=== PATIENT | female | born 1970 | race Caucasian/White ===

== ENCOUNTER 2018-02-15 15:43 | Outpatient (CLI) | payer OTHER ==
--- NOTE | 2018-02-15 16:24 | RAD ---
THREE VIEWS LEFT SHOULDER 02/15/18 COMPARISON: None. HISTORY: Left shoulder pain. FINDINGS: There is mild degenerative change involving the left AC joint. There is no widening of the AC or CC i nterspace. There is no displaced fracture or dislocation. IMPRESSION: No acute osseous abnormality. POS: [facility]
--- NOTE | 2018-02-15 16:25 | RAD ---
LEFT FOREARM TWO VIEWS: 02/15/18 HISTORY: Left arm pain. FINDINGS: Ulna negative variance is noted. Radius and ulna are intact. Mild osteophytosis. IMPRESSION: No acute osseous abnormalities are demonstrated. POS: [facility]
--- NOTE | 2018-02-15 16:26 | RAD ---
LEFT ELBOW FOUR VIEWS: 02/15/18 HISTORY: Left elbow pain. FINDINGS: Radiocapitellar alignment is maintained. No acute fracture, dislocation, aggressive osseous erosions or fluid distention of the joint capsule. IMPRESSION: No acute osseous abnormalities are demonstrated. POS: [facility]
== END 2018-02-15 15:44 | disposition home or self-care (01) ==
LOC: NAV RAD 15:43
PROVIDERS: ATTEND Family Medicine
DX: M25.512 Pain in left shoulder (principal); M25.522 Pain in left elbow; M79.622 Pain in left upper arm

== ENCOUNTER 2018-05-26 10:46 | Emergency (ER) | payer OTHER ==
[2018-05-26] MEDS ORDERED: Furosemide 40 MG/4 ML VIAL ONE ×2 (11:29→14:15)
[2018-05-26 11:50] LABS: #Basophils 0.1 thou/uL (0.0-0.2); #Eosinphils 0.2 thou/uL (0.0-0.7); #Lymphocytes 2.1 thou/uL (1.20-3.40); #Neutrophils 7.1 thou/uL (1.40-6.50); %Basophils 1.4 % (0.0-1.0); %Monocytes 9.2 % (0.0-10.0); %Neutrophils 67.4 % (42.0-75.0); Hemoglobin 12.9 g/dL (12.0-16.0); Mean Corpuscular HGB CONC 31.2 g/dL (32.0-36.0); Mean Corpuscular Volume 89.8 fL (78.0-98.0); Mean Platelet Volume 7.4 fL (7.4-10.4); Platelet Count 306 thou/uL (130-400); RBC Distribution Width 16.2 % (11.5-14.5); Red Blood Cell (RBC) Count 4.61 mill/uL (4.20-5.40); White Blood Cell (WBC) Count 10.5 thou/uL (4.8-10.8)
[2018-05-26 11:56] LABS: Bilirubin Negative (Negative); Blood, Urine Negative (Negative); Clarity Clear (Clear); Glucose, Urine (Dipstick) Negative (Negative); Leukocyte Negative (Negative); Nitrite Negative (Negative); Protein, Urine (Dipstick) Negative (Neg-Trace); Urobilinogen 0.2 mg/dL (0.2-1.0); pH, Urine 8.5 (5.0-9.0)
[2018-05-26] MEDS ORDERED: Sodium Chloride 0.9% 500 ML ONE (11:58)
[2018-05-26 12:00] LABS: INR-International Normal Ratio 0.9; PTT 25.2 SEC (22.9-36.1); Prothrombin Time 12.4 SEC (12.0-14.7)
[2018-05-26 12:09] LABS: ALT (SGPT) 19 U/L (8-55); AST (SGOT) 19 U/L (5-34); Albumin 3.8 g/dL (3.5-5.0); Alkaline Phosphatase 75 U/L (40-150); Anion Gap 16 mmol/L (10-20); BUN (Urea Nitrogen) 8 mg/dL (7.0-18.7); Bilirubin, Total 0.2 mg/dL (0.2-1.2); Calc. Creatinine Clearance 0 mL/min (70-130); Calcium 9.7 mg/dL (7.8-10.44); Carbon Dioxide 27 mmol/L (22-29); Chloride 100 mmol/L (98-107); Estimated GFR-MDRD 87; Globulin 2.7 g/dL (2.4-3.5); Glucose 98 mg/dL (70-105); Potassium 4.3 mmol/L (3.5-5.1); Protein, Total 6.5 g/dL (6.0-8.3); Sodium 139 mmol/L (136-145)
[2018-05-26 12:11] LABS: CKMB 1.9 ng/mL (0-6.6); Troponin I Less than 0.010 ng/mL (< 0.028)
[2018-05-26] MEDS ORDERED: Potassium Chloride 20 MEQ TAB ONE (14:10)
--- NOTE | 2018-05-26 14:55 | RAD ---
PORTABLE AP CHEST XRAY: DATE: 05/26/18. HISTORY: Shortness of breath on exertion, edema, dyspnea. COMPARISON: None available. FINDINGS: The cardiac silhouette and pulmonary vasculature are within normal limits. The lungs are clear. Oss eous structures appear intact. IMPRESSION: No acute cardiopulmonary process. POS: [facility]
== END 2018-05-26 14:25 | disposition home or self-care (01) ==
LOC: NAV ERS 10:46
DX: I89.0 Lymphedema, not elsewhere classified (principal); L03.116 Cellulitis of left lower limb; L03.115 Cellulitis of right lower limb; E11.9 Type 2 diabetes mellitus without complications; I10 Essential (primary) hypertension; J44.9 Chronic obstructive pulmonary disease, unspecified; F41.9 Anxiety disorder, unspecified; F31.9 Bipolar disorder, unspecified; F20.9 Schizophrenia, unspecified; M19.90 Unspecified osteoarthritis, unspecified site; F17.210 Nicotine dependence, cigarettes, uncomplicated; Z86.73 Personal history of transient ischemic attack (TIA), and cerebral infarction without residual deficits; Z79.899 Other long term (current) drug therapy
CPT/HCPCS: 71045; 80053; 81003; 82553; 83880; 84484; 85025; 85610; 85730; 93005; 94640; 96365; 96366; 96375; 96376; J1940; J3370; J7050; J7620

== ENCOUNTER 2020-11-27 11:02 | Emergency (ER) | payer OTHER | END 2020-11-27 12:05 | disposition short-term general hospital (02) | LOC: NAV ERS 11:02 | DX: M79.662 Pain in left lower leg (principal); E11.9 Type 2 diabetes mellitus without complications; J44.9 Chronic obstructive pulmonary disease, unspecified; I10 Essential (primary) hypertension; Z86.73 Personal history of transient ischemic attack (TIA), and cerebral infarction without residual deficits; M19.90 Unspecified osteoarthritis, unspecified site; F17.210 Nicotine dependence, cigarettes, uncomplicated; Z86.718 Personal history of other venous thrombosis and embolism; Z79.51 Long term (current) use of inhaled steroids; Z79.899 Other long term (current) drug therapy ==

== ENCOUNTER 2022-07-18 08:07 | Emergency (ER) | payer OTHER, SELFPAY ==
[2022-07-18] MEDS ORDERED: Ondansetron ODT 4 MG TAB ONE (08:57)
[2022-07-18] MEDS ORDERED: Amoxicillin/Potassium Clav 875 MG TAB ONE (09:06)
[2022-07-18] MEDS ORDERED: Ketorolac Tromethamine 60 MG/2 ML VIAL ONE (09:06)
[2022-07-18] MEDS ORDERED: predniSONE 20 MG TAB ONE (09:06)
== END 2022-07-18 09:37 | disposition home or self-care (01) ==
LOC: NAV ERS 08:07
DX: J44.1 Chronic obstructive pulmonary disease with (acute) exacerbation (principal); K04.7 Periapical abscess without sinus; I10 Essential (primary) hypertension; F17.210 Nicotine dependence, cigarettes, uncomplicated; Z79.899 Other long term (current) drug therapy
CPT/HCPCS: 96372; 99284; J1885; J7512; Q0162

== ENCOUNTER 2023-02-01 08:03 | Emergency (ER) | payer OTHER ==
[2023-02-01] MEDS ORDERED: traMADol HCl 50 MG TAB ONE (08:37)
[2023-02-01] MEDS ORDERED: Ketorolac Tromethamine 30 MG/ML VIAL ONE (08:37)
[2023-02-01 08:42] LABS: #Basophils 0.1 thou/uL (0.0-0.2); #Eosinphils 0.5 thou/uL (0.0-0.7); #Lymphocytes 1.8 thou/uL (1.20-3.40); #Monocytes 0.6 thou/uL (0.11-0.59); #Neutrophils 6.6 thou/uL (1.40-6.50); %Basophils 1.2 % (0.0-1.0); %Eosinophils 5.3 % (0.0-10.0); %Lymphocytes 18.7 % (21.0-51.0); %Monocytes 6.6 % (0.0-10.0); %Neutrophils 68.1 % (42.0-75.0); Hemoglobin 15.4 g/dL (12.0-16.0); Mean Corpuscular HGB CONC 31.2 g/dL (32.0-36.0); Mean Corpuscular Hemoglobin 29.4 pg (27.0-31.0); Mean Platelet Volume 9.2 fL (7.4-10.4); Platelet Count 191 10x3/uL (130-400); RBC Distribution Width 14.4 % (11.5-14.5); Red Blood Cell (RBC) Count 5.24 mill/uL (4.20-5.40); White Blood Cell (WBC) Count 9.7 10x3/uL (4.8-10.8)
[2023-02-01 08:56] LABS: ALT (SGPT) 13 U/L (8-55); AST (SGOT) 12 U/L (5-34); Albumin 4.3 g/dL (3.5-5.0); Alkaline Phosphatase 90 U/L (40-110); Anion Gap 16 mmol/L (10-20); BUN (Urea Nitrogen) 14 mg/dL (9.8-20.1); Bilirubin, Total 0.3 mg/dL (0.2-1.2); Calc. Creatinine Clearance 0 mL/min (70-130); Calcium 9.5 mg/dL (7.8-10.44); Carbon Dioxide 26 mmol/L (22-29); Chloride 102 mmol/L (98-107); Estimated GFR 91; Globulin 3.2 g/dL (2.4-3.5); Glucose 108 mg/dL (70-105); Protein, Total 7.5 g/dL (6.0-8.3); Sodium 140 mmol/L (136-145)
[2023-02-01] MEDS ORDERED: Iopamidol 370 76% 100 ML VIAL ONE (09:00)
== END 2023-02-01 10:16 | disposition home or self-care (01) ==
LOC: NAV ERS 08:03
DX: I87.8 Other specified disorders of veins (principal); E66.01 Morbid (severe) obesity due to excess calories; I10 Essential (primary) hypertension; J44.9 Chronic obstructive pulmonary disease, unspecified; F17.210 Nicotine dependence, cigarettes, uncomplicated; Z79.899 Other long term (current) drug therapy
CPT/HCPCS: 80053; 85025; 86140; 96374; J1885; Q9967

== ENCOUNTER 2023-02-13 20:12 | Emergency (ER) | payer OTHER ==
[~2023-02-13 20:12] MED LIST: Iopamidol 370 76% 100 ML VIAL ONE
[2023-02-13 20:45] LABS: #Basophils 0.1 thou/uL (0.0-0.2); #Eosinphils 1.2 thou/uL (0.0-0.7); #Lymphocytes 3.3 thou/uL (1.20-3.40); #Monocytes 0.6 thou/uL (0.11-0.59); #Neutrophils 5.7 thou/uL (1.40-6.50); %Basophils 1.1 % (0.0-1.0); %Eosinophils 11.1 % (0.0-10.0); %Lymphocytes 30.4 % (21.0-51.0); %Monocytes 5.2 % (0.0-10.0); %Neutrophils 52.2 % (42.0-75.0); Hemoglobin 15.8 g/dL (12.0-16.0); Mean Corpuscular HGB CONC 30.8 g/dL (32.0-36.0); Mean Corpuscular Hemoglobin 29.2 pg (27.0-31.0); Mean Corpuscular Volume 94.6 fl (78.0-98.0); Mean Platelet Volume 8.2 fL (7.4-10.4); Platelet Count 249 10x3/uL (130-400); RBC Distribution Width 14.3 % (11.5-14.5); Red Blood Cell (RBC) Count 5.43 mill/uL (4.20-5.40); White Blood Cell (WBC) Count 10.8 10x3/uL (4.8-10.8)
[2023-02-13 21:00] LABS: ALT (SGPT) 18 U/L (8-55); AST (SGOT) 15 U/L (5-34); Albumin 4.2 g/dL (3.5-5.0); Alkaline Phosphatase 89 U/L (40-110); Anion Gap 17 mmol/L (10-20); BUN (Urea Nitrogen) 16 mg/dL (9.8-20.1); Bilirubin, Total 0.2 mg/dL (0.2-1.2); Calc. Creatinine Clearance 0 mL/min (70-130); Calcium 9.7 mg/dL (7.8-10.44); Carbon Dioxide 28 mmol/L (22-29); Chloride 100 mmol/L (98-107); Estimated GFR 83; Globulin 3.1 g/dL (2.4-3.5); Glucose 107 mg/dL (70-105); Potassium 4.1 mmol/L (3.5-5.1); Protein, Total 7.3 g/dL (6.0-8.3); Sodium 141 mmol/L (136-145)
[2023-02-13] MEDS ORDERED: Sodium Chloride 0.9% 1,000 ML ONE (21:08)
[2023-02-13] MEDS ORDERED: Morphine 4 MG/ML VIAL ONE ×2 (21:08→23:23)
[2023-02-13] MEDS ORDERED: Clindamycin/D5W 900 mg/50 ml Premix Bag ONE (21:16)
== END 2023-02-13 23:47 | disposition home or self-care (01) ==
LOC: NAV ERS 20:12
DX: K04.4 Acute apical periodontitis of pulpal origin (principal); J32.0 Chronic maxillary sinusitis; F17.210 Nicotine dependence, cigarettes, uncomplicated; J44.9 Chronic obstructive pulmonary disease, unspecified; I10 Essential (primary) hypertension
CPT/HCPCS: 36415; 70487; 80053; 85025; 96365; 96375; 96376; J2270; J3490; J7050; Q9967

== ENCOUNTER 2024-04-17 11:30 | Outpatient (CLI) | payer OTHER | END 2024-04-17 11:31 | disposition home or self-care (01) | LOC: NAV RAD 11:30 | PROVIDERS: ATTEND Student in an Organized Health Care Education/Training Program | DX: J44.1 Chronic obstructive pulmonary disease with (acute) exacerbation (principal) | CPT/HCPCS: 71046 ==

== ENCOUNTER 2024-08-14 12:22 | Outpatient (CLI) | payer OTHER, SELFPAY | END 2024-08-14 12:23 | disposition home or self-care (01) | LOC: NAV RAD 12:22 | PROVIDERS: ATTEND Nurse Practitioner Family | DX: R06.02 Shortness of breath (principal) | CPT/HCPCS: 71046 ==

== ENCOUNTER 2025-08-15 08:50 | Emergency (ER) | payer OTHER ==
[2025-08-15] MEDS ORDERED: predniSONE 20 MG TAB ONE (09:39)
[2025-08-15] MEDS ORDERED: Albuterol 200 PUFF (6.7GM INHALER) ONE (09:40)
== END 2025-08-15 10:07 | disposition home or self-care (01) ==
LOC: NAV ERS 08:50
DX: J44.1 Chronic obstructive pulmonary disease with (acute) exacerbation (principal); I10 Essential (primary) hypertension; N32.81 Overactive bladder; G62.9 Polyneuropathy, unspecified; M79.7 Fibromyalgia; M19.90 Unspecified osteoarthritis, unspecified site; M81.0 Age-related osteoporosis without current pathological fracture; F41.9 Anxiety disorder, unspecified; F32.A Depression, unspecified; F20.9 Schizophrenia, unspecified; F43.10 Post-traumatic stress disorder, unspecified; F17.210 Nicotine dependence, cigarettes, uncomplicated; Z79.899 Other long term (current) drug therapy; Z86.73 Personal history of transient ischemic attack (TIA), and cerebral infarction without residual deficits; Z79.51 Long term (current) use of inhaled steroids
CPT/HCPCS: J7512